=== PATIENT | male | born 1955 | race Caucasian/White ===

== ENCOUNTER 2016-08-09 16:12 | Emergency (ER) | payer OTHER ==
[~2016-08-09] VITALS: Ht 175.3 cm; Wt 61.2 kg
[2016-08-09 16:30] VITALS: BP 131/78
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
[2016-08-09] MEDS ORDERED: Diazepam 10mg/2ml Inj IV ONE (16:45)
[2016-08-09 17:30] VITALS: BP 119/74
[2016-08-09 18:30] VITALS: BP 110/64
[2016-08-09 18:31] LABS: BASOPHILS % (AUTO) 0.6 % (0.0-2.0); LYMPHOCYTES % (AUTO) 11.8 % (20.0-45.0); MEAN CORPUSCULAR HEMOGLOBIN 30.6 PG (27.0-31.0); MEAN CORPUSCULAR HGB CONC 33.5 G/DL (32.0-36.0); MEAN CORPUSCULAR VOLUME 91 FL (80-99); MEAN PLATELET VOLUME 5.9 FL (6.5-10.1); NEUTROPHILS % (AUTO) 83.7 % (45.0-75.0); PLATELET COUNT 419 K/UL (150-450); RED BLOOD COUNT 4.77 M/UL (4.70-6.10); RED CELL DISTRIBUTION WIDTH 11.5 % (11.6-14.8); WHITE BLOOD COUNT 11.4 K/UL (4.8-10.8)
[2016-08-09 18:47] LABS: ANION GAP 19 (5-15); CALCIUM 10.1 mg/dL (8.6-10.2); CARBON DIOXIDE 22 mEQ/L (20-30); CHLORIDE 101 mEQ/L (98-107); CREATININE 1.1 mg/dL (0.7-1.2); GLOMERULAR FILTRATION RATE > 60 mL/min (>60); HEMOLYSIS 4; POTASSIUM 4.3 mEQ/L (3.4-4.9); SODIUM 142 mEQ/L (135-145)
[2016-08-09] MEDS ORDERED: VALIUM10 MG ORAL (18:51)
[2016-08-09] MEDS ORDERED: NORCO 10-325 T1 EACH ORAL (18:51)
[2016-08-09] MEDS ORDERED: FENTANYL1 EAC3 TDERMAL (18:51)
[2016-08-09 21:14] VITALS: BP 127/77
[2016-08-09 22:12] VITALS: BP 129/80
--- NOTE | 2016-08-17 14:57 | Cardiology Report ---
APPROVED REPORT EKG Measurement Heart [id number] Normal sinus rhythm with sinus arrhythmia Left anterior fascicular block Abnormal ECG
== END 2016-08-09 22:20 | disposition short-term general hospital (02) ==
LOC: EDBD 16:12 → EMR 19:24
DX: M54.5 Low back pain (principal)
CPT/HCPCS: 36415; 80048; 85025; 93005; 96361; 96374; 96375; 99285; J1170; J2405; J2550; J3360

== ENCOUNTER 2017-06-17 14:34 | Emergency (ER) | payer OTHER ==
[~2017-06-17] VITALS: Ht 177.8 cm; Wt 72.6 kg
[~2017-06-17 14:34] MED LIST: FENTANYL1 EAC3 TDERMAL; NORCO 10-325 T1 EACH ORAL; VALIUM10 MG ORAL
[2017-06-17 14:40] VITALS: BP 145/84
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
[2017-06-17] MEDS: Haloperidol 5mg/ml Inj IM ONE (15:19)
[2017-06-17] MEDS: Morphine Sulfate 4mg/ml Inj IVP ONE (15:21)
[2017-06-17 16:20] LABS: INR 0.9 (0.9-1.1); PROTHROMBIN TIME 9.7 SEC (9.30-11.50)
[2017-06-17 16:32] LABS: ANION GAP 14 mmol/L (5-15); CALCIUM 10.1 MG/DL (8.5-10.1); CARBON DIOXIDE 22 MMOL/L (21-32); CHLORIDE 107 MMOL/L (98-107); CREATININE 1.1 MG/DL (0.55-1.30); GLOMERULAR FILTRATION RATE > 60 mL/min (>60); POTASSIUM 3.9 MMOL/L (3.5-5.1); SODIUM 143 MMOL/L (136-145)
[2017-06-17 16:37] LABS: ALANINE AMINOTRANSFERASE 14 U/L (12-78); ALBUMIN/GLOBULIN RATIO 1.2 (1.0-2.7); ALCOHOL < 3 mg/dL; ASPARTATE AMINO TRANSFERASE 15 U/L (15-37)
[2017-06-17 16:40] LABS: BASOPHILS % (AUTO) 0.5 % (0.0-2.0); LYMPHOCYTES % (AUTO) 12.1 % (20.0-45.0); MEAN CORPUSCULAR HEMOGLOBIN 29.4 PG (27.0-31.0); MEAN CORPUSCULAR HGB CONC 31.9 G/DL (32.0-36.0); MEAN CORPUSCULAR VOLUME 92 FL (80-99); MEAN PLATELET VOLUME 5.4 FL (6.5-10.1); MONOCYTES % (AUTO) 3.5 % (1.0-10.0); NEUTROPHILS % (AUTO) 83.9 % (45.0-75.0); PLATELET COUNT 324 K/UL (150-450); RED BLOOD COUNT 4.18 M/UL (4.70-6.10); RED CELL DISTRIBUTION WIDTH 11.3 % (11.6-14.8); WHITE BLOOD COUNT 8.2 K/UL (4.8-10.8)
[2017-06-17 16:46] VITALS: BP 145/57
[2017-06-17 18:13] VITALS: BP 118/56
[2017-06-17 19:24] VITALS: BP 120/65
[2017-06-17 19:25] VITALS: BP 120/65
--- NOTE | 2017-06-19 14:31 | Cardiology Report ---
APPROVED REPORT EKG Measurement Heart [id number] Normal sinus rhythm with sinus arrhythmia Pulmonary disease pattern Left anterior fascicular block Abnormal ECG
== END 2017-06-17 19:28 | disposition home or self-care (01) ==
LOC: EDBD 14:34 → EMR 15:20
DX: R10.9 Unspecified abdominal pain (principal); M54.9 Dorsalgia, unspecified; G89.29 Other chronic pain; Z88.8 Allergy status to other drugs, medicaments and biological substances
CPT/HCPCS: 36415; 80053; 84484; 85025; 85610; 85730; 93005; 96372; 96374; 96375; 99284; G0480; J1630; J2270; 80329